=== PATIENT | male | born 1975 | race African-American/Black ===

== ENCOUNTER 2021-12-27 20:02 | Emergency (ER) | payer OTHER ==
--- NOTE | 2021-12-27 21:09 | ED Lower Extremity ---
General Chief Complaint: Lower Extremity Stated Complaint: R LEG PAIN/PREV DX WITH BLOOD CLOT Source: patient Exam Limitations: no limitations (JUANITA WHITE) History of Present Illness Date Seen by Provider: Dec 27, 2021 Time Seen by Provider: 21:03 Initial Comments Patient is a 46-year-old male who presents ED with right calf and right hamstring pain. History of DVT in the right leg. Patient states around 730 tonight while at work started having pain in the right calf and right posterior thigh while standing. History of DVT the right leg. Currently on Xarelto 20 mg daily. States he suffered a DVT secondary to post surgery. Patient took Xarelto for 3 months and developed another DVT in the right leg 2 weeks later. Has been taken Xarelto daily for the past year. Denies any chest pain, shortness of breath. Denies any trauma. Noted some swelling to the right leg. Pain only occurs with standing. Denies fever, chills, nausea, vomiting, diarrhea. (JUANITA WHITE) Allergies and Home Medications Allergies Coded Allergies: No Known Drug Allergies (Unverified , 12/27/21) Patient Home Medication List Home Medication List Reviewed: Yes (JUANITA WHITE) Rivaroxaban (Xarelto) 20 Mg Tablet, 20 MG PO DAILY Prescribed by: CARO LÓPEZ on 12/27/212128 Review of Systems Constitutional: No chills, No diaphoresis, No malaise, No weakness EENTM: No blurred vision, No double vision Respiratory: No cough, No dyspnea on exertion Cardiovascular: No chest pain Gastrointestinal: No abdominal pain, No diarrhea, No dysphagia, No nausea, No vomiting Genitourinary: No decreased output Musculoskeletal: No back pain, No joint pain; muscle pain, muscle stiffness Skin: change in color (JUANITA WHITE) All Other Systems Reviewed Negative Unless Noted: Yes (JUANITA WHITE) Past Ylehbdq-Xuqomg-Ksxkpc Hx Patient Social History Tobacco Use?: Yes Tobacco type used: Cigarettes Smoking Status: Current Everyday Smoker Substance use?: No Alcohol Use?: Yes Alcohol Frequency: Rarely Pt feels they are or have been: No (JUANITA WHITE) Immunizations Up To Date First/Initial COVID19 Vaccinat: 2020 Second COVID19 Vaccination Zoltan: 2020 COVID19 Vaccine Finance Lead: MARIA C (JUANITA WHITE) Past Medical History Surgery/Hospitalization HX: HTN, BLOOD CLOT (JUANITA WHITE) Physical Exam Vital Signs Vital Signs - First Documented 12/27/21 20:48 Temp 36.4 Pulse 73 Resp 18 B/P (MAP) 134/83 (100) (ALPESH CHASE DO) Vital Signs Capillary Refill : (JUANITA WHITE) Height, Weight, BMI Height: '" Weight: lbs. oz. kg; BMI Method: General Appearance: WD/WN, no apparent distress HEENT: PERRL/EOMI, normal ENT inspection, TMs normal, pharynx normal Neck: non-tender, full range of motion, supple, normal inspection Cardiovascular: regular rate, rhythm, no edema, no gallop, no JVD Respiratory: chest non-tender, lungs clear, normal breath sounds, no respiratory distress, no accessory muscle use Gastrointestinal: normal bowel sounds, non tender, soft, no organomegaly Hips: bilateral hip non-tender, bilateral hip normal inspection, bilateral hip normal range of motion Legs: right leg swelling Knees: bilateral knee non-tender, bilateral knee normal inspection, bilateral knee normal range of motion Ankles: bilateral ankle non-tender, bilateral ankle normal inspection, bilateral ankle normal range of motion Feet: bilateral foot non-tender, bilateral foot normal inspection, bilateral foot normal range of motion Neurologic/Tendon: normal sensation, normal motor functions, normal tendon fu nctions Skin: other (Mild swelling to the right lower extremity.) (JUANITA WHITE) Progress/Results/Core Measures Results/Orders Vital Signs/I&O 12/27/21 12/27/21 20:48 21:22 Temp 36.4 36.4 Pulse 73 71 Resp 18 18 B/P (MAP) 134/83 (100) 134/83 (ALPESH CHASE DO) Departure Communication (PCP) Patient presents ED with right leg pain. History of DVT. Currently on Xarelto 20 mg daily. Started having pain while standing at work. Does have some mild swelling to the right leg. No area of inoculation suggesting concern for infection. No erythema at this time but did have some increased swelling compared to the left. Due to not having ultrasound on the weekends ultrasound was ordered outpatient for tomorrow. Provided order for patient. Refilled the patient Xarelto for a few days. States he is almost out of his Xarelto and has been taking daily. History of DVT 1 year ago. Denies any chest pain, shortness of breath, fever, chills. Once again no trauma. Results would be called to his primary care physician or here in the ER. If worsening pain, chest pain or shortness of breath return back to ED (JUANITA WHITE) Impression Primary Impression: Pain and swelling of right lower leg Disposition: HOME, SELF-CARE Condition: Stable Departure-Patient Inst. Decision time for Depature: 21:09 (JUANITA WHITE) Referrals: [facility],LOCAL PHYSICIAN (PCP) Primary Care Physician Patient Instructions: Deep Vein Thrombosis (Blood Clots in the Legs) (DC) Add. Discharge Instructions: Recommend continue with Xarelto. Recommend following up with ultrasound on Thursday. If any worsening pain, shortness of breath, chest pain to return back to ED. All discharge instructions reviewed with patient and/or family. Voiced understanding. Scripts Rivaroxaban (Xarelto) 20 Mg Tablet 20 MG PO DAILY, #6 TAB Prov: JUANITA WHITE 12/27/21 Work/School Note: Work Release Form Date Seen in the Emergency Department: Dec 27, 2021 Return to Work: Dec 30, 2021 ATTENDING PHYSICIAN NOTE: I WAS PHYSICALLY PRESENT ER PHYSICIAN, BUT I WAS NOT INVOLVED IN ANY DECISION MAKING OR ANY CARE OF THIS PATIENT. (ALPESH CHASE DO) JUANITA WHITE Dec 27, 2021 21:09 ALPESH CHASE DO Dec 28, 2021 05:45
[2021-12-27 21:22] VITALS: BP 134/83
[2021-12-27] MEDS ORDERED: RIVA20TA PO (21:29)
== END 2021-12-27 21:21 | disposition home or self-care (01) ==
LOC: ER 20:05
DX: M79.89 Other specified soft tissue disorders (principal); M79.661 Pain in right lower leg; F17.210 Nicotine dependence, cigarettes, uncomplicated; Z86.718 Personal history of other venous thrombosis and embolism; Z79.01 Long term (current) use of anticoagulants
CPT/HCPCS: 99281

== ENCOUNTER 2022-04-21 07:55 | Emergency (ER) | payer OTHER ==
[~2022-04-21] VITALS: Ht 182 cm; Wt 108.0 kg
[~2022-04-21 07:55] MED LIST: RIVA20TA PO
[2022-04-21 08:00] VITALS: BP 116/61
--- NOTE | 2022-04-21 08:39 | ED General ---
General Chief Complaint: General Problems/Pain Stated Complaint: HEADACHE / ABD PAIN Nursing Triage Note: ARRIVED VIA AMB TO ROOM 07 WITH MULTIPLE COMPLAINTS. 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 ALSO COMPLAINS OF HAVING A HX OF A DVT IN HIS RIGHT LEG X1 YEAR BUT HAS NOT BEEN ABLE TO TAKE XERALTO DUE TO BEING IN [place]. ALSO STATES HE WAS TOLD BY THE [employer] NURSE HE MIGHT HAVE COPD AND WOULD LIKE TESTED. Source of Information: Patient Exam Limitations: No Limitations History of Present Illness Date Seen by Provider: Apr 21, 2022 Time Seen by Provider: 08:23 Initial Comments Here with report of bilateral frontal headache, congestion, mild cough and upper abdominal pain after being exposed to bleach and toilet bowl machine fur cleaner mixture last week. He was seen at outside facility in [place] after that incident was given some breathing treatments and had labs drawn which were okay. He was supposed to have an inhaler prescribed and did get that prescription but did not fill it yet. He is subsequently came to the [facility], where he intends on staying. Denies nausea or vomiting. Denies fever or chills. He is on Xarelto due to history of DVT but is out of that medicine for 2 days and is wondering about that as well. He was concerned that the chemical mixture may have caused some problems and did not know if he needed to have that checked out further. Timing/Duration: 4-5 Days Severity: Mild Associated Systoms: No Chest Pain; Cough; No Fever/Chills; Headaches; No Nausea/Vomiting; Shortness of Air; No Weakness Allergies and Home Medications Allergies Coded Allergies: No Known Drug Allergies (Unverified , 12/27/21) Patient Home Medication List Home Medication List Reviewed: Yes Rivaroxaban (Xarelto) 20 Mg Tablet, 20 MG PO DAILY Prescribed by: CARO LÓPEZ on 12/27/212128 Review of Systems Review of Systems Constitutional: see HPI; No chills, No fever EENTM: nose congestion, other (Sinus tenderness); No throat pain, No throat swelling Respiratory: cough, short of breath Cardiovascular: no symptoms reported Gastrointestinal: see HPI; No diarrhea, No vomiting Musculoskeletal: No back pain, No muscle pain Psychiatric/Neurological: Headache; Denies Weakness Past Hadzesc-Htxtvy-Rgbazj Hx Patient Social History Tobacco Use?: Yes Smoking Status: Current Everyday Smoker Substance use?: Yes Substance type: Marijuana Alcohol Use?: Yes Alcohol Frequency: Once in a while Immunizations Up To Date First/Initial COVID19 Vaccinat: 2020 Second COVID19 Vaccination Zoltan: UNKNOWN COVID19 Vaccine Swimming Pool Serviceperson: MODERNAlla Past Medical History Surgery/Hospitalization HX: HTN, BLOOD CLOT Surgeries: Yes Abdominal, Appendectomy Respiratory: No Cardiac: Yes Deep Vein Thrombosis Neurological: No Family Medical History Reviewed and Corrections made No Pertinent Family Hx Physical Exam Vital Signs Vital Signs - First Documented 04/21/22 08:00 Temp 36.6 Pulse 78 Resp 16 B/P (MAP) 116/61 (79) Pulse Ox 97 O2 Delivery Room Air Capillary Refill : Less Than 3 Seconds Height, Weight, BMI Height: '" Weight: lbs. oz. kg; 32.00 BMI Method: General Appearance: No Apparent Distress, WD/WN HEENT: TMs Normal, Other (Mild pharyngeal erythema. Mild bilateral frontal sinus tenderness) Neck: Full Range of Motion, Normal Inspection, Non Tender, Supple Respiratory: Normal Breath Sounds, No Accessory Muscle Use Cardiovascular: Regular Rate, Rhythm, No Murmur Gastrointestinal: Non Tender, Soft Neurologic/Psychiatric: Alert, Oriented x3 Skin: Normal Color, Warm/Dry Progress/Results/Core Measures Suspected Sepsis SIRS Temperature: Pulse: 78 Respiratory Rate: 16 Blood Pressure 116 /61 Mean: 79 Results/Orders My Orders Orders - TRISHA RODRIGUEZ MD Rivaroxaban Tablet (Xarelto Tablet) (04/21/22 09:00) Ketorolac Injection (Toradol Injection) (04/21/22 08:58) Vital Signs/I&O 04/21/22 08:00 Temp 36.6 Pulse 78 Resp 16 B/P (MAP) 116/61 (79) Pulse Ox 97 O2 Delivery Room Air Capillary Refill : Less Than 3 Seconds Blood Pressure Mean: 79 Progress Note : Progress Note Seen and evaluated. Toradol 60 mg IM and Xarelto 20 mg p.o. We will write prescription for Xarelto, amoxicillin, albuterol MDI and a short course of steroids for sinusitis and postexposure bronchitis. He also has history of DVT that he we will continue to manage as outpatient. He apparently failed being off of anticoagulants previously so will be on this lifelong per the patient. He will follow-up with outpatient clinic here and establish care. Discharged home with return precautions. Patient verbalized understanding of instructions and agreement with plan. Departure Impression Primary Impression: Acute sinusitis Qualified Codes: J01.10 - Acute frontal sinusitis, unspecified Additional Impression: Bronchitis Disposition: HOME, SELF-CARE Condition: Stable Departure-Patient Inst. Decision time for Depature: 09:06 Referrals: AMBER WARREN MD NO,LOCAL PHYSICIAN (PCP) Primary Care Physician Patient Instructions: Sinusitis, Adult ED, Acute Bronchitis, Adult (DC) Add. Discharge Instructions: All discharge instructions reviewed with patient and/or family. Voiced understanding. You may take Tylenol/acetaminophen 1000 mg every 8 hours as needed for fever or pain. You may use Afrin nasal spray or the generic, 12 hour relief, 2 sprays to each nostril twice daily for 3 days only and then stop. Do not use more than 3 days. Take other medications as directed. Drink plenty of fluids. Return for worse pain, fever, vomiting, weakness, breathing problems or other concerns as needed. Follow-up with outpatient clinic listed or of your choosing. Call for an establish care appointment for first available. Scripts Prednisone (Prednisone) 20 Mg Tab 40 MG PO DAILY, #8 TAB 0 Refills Prov: TRISHA RODRIGUEZ MD 04/21/22 Amoxicillin (Amoxicillin) 500 Mg Capsule 500 MG PO TID, #30 CAP 0 Refills Prov: TRISHA RODRIGUEZ MD 04/21/22 Albuterol Sulfate (VENTOLIN HFA) 1 Puff Puff 2 PUFF INH Q4H PRN for COUGH, #1 EA 1 Refill 1 PUFF = 90 MCG Prov: TRISHA RODRIGUEZ MD 04/21/22 Rivaroxaban (Xarelto) 20 Mg Tablet 20 MG PO DAILY for 30 Days, #30 TAB 1 Refill Prov: TRISHA RODRIGUEZ MD 04/21/22 TRISHA RODRIGUEZ MD Apr 21, 2022 08:39
[2022-04-21] MEDS ORDERED: KETOROLAC 60 MG/2 ML VIAL IM STA (08:58)
[2022-04-21] MEDS ORDERED: RIVAROXABAN 20 MG TABLET (XARELTO) PO ONE (09:00)
[2022-04-21] MEDS ORDERED: PRD20T PO (09:09)
[2022-04-21] MEDS ORDERED: AMOX500C2 PO (09:09)
[2022-04-21] MEDS ORDERED: RT-ALBUINH INH (09:09)
[2022-04-21] MEDS ORDERED: RIVA20TA PO (09:09)
== END 2022-04-21 09:19 | disposition home or self-care (01) ==
LOC: EDUNIT# 07:55 → ER 07:57
DX: J01.90 Acute sinusitis, unspecified (principal); J40 Bronchitis, not specified as acute or chronic; F17.200 Nicotine dependence, unspecified, uncomplicated
CPT/HCPCS: 99285

== ENCOUNTER → 2022-10-06 | Outpatient (CLI) | payer OTHER ==
[~2022-10-06] MED LIST changes: +AMOX500C2 PO; +PRD20T PO; +RT-ALBUINH INH
--- NOTE | 2022-10-06 16:26 | Diagnostic Imaging Report ---
EXAMINATION: Left wrist radiographs, 2 views. COMPARISON: None. HISTORY: 46-year-old male, left wrist pain. FINDINGS: There is no identified acute fracture. Bone mineralization and alignment are unremarkable. The joint spaces are well preserved. IMPRESSION: Unremarkable radiographs of the left wrist. Dictated by: Dictated on workstation # [id number]
--- NOTE | 2022-10-06 16:26 | Diagnostic Imaging Report ---
EXAMINATION: Left shoulder radiographs, 2 views. COMPARISON: None. HISTORY: 46-year-old male, left shoulder pain. FINDINGS: The humeral head is normally positioned relative to the glenoid. The acromioclavicular joint is normally aligned. There are no acromioclavicular degenerative changes. There is no identified acute fracture. The glenohumeral joint space appears to be well-maintained. IMPRESSION: Unremarkable radiographs of the left shoulder. Dictated by: Dictated on workstation # [id number]
== END ==
LOC: RAD 15:57
PROVIDERS: ATTEND Family Medicine
DX: M25.512 Pain in left shoulder (principal); M25.532 Pain in left wrist
CPT/HCPCS: 73030; 73100

== ENCOUNTER 2022-10-29 11:54 | Emergency (ER) | payer SELFPAY ==
[~2022-10-29] VITALS: Ht 182 cm; Wt 122.0 kg
--- NOTE | 2022-10-29 12:13 | ED Lower Extremity ---
General Chief Complaint: Lower Extremity Stated Complaint: RT LEG BLOOD CLOT Nursing Triage Note: RIGHT LOWER LEG SWELLING X2 WEEKS THAT STARTED HURTING UP INTO HIS THIGH. HX OF BLOOD CLOTS. STOPPED XERELTO X3-4 MONTHS AGO BECAUSE HE COULD NOT AFFORD IT AND HAS BEEN TAKING ASA. PT COMPLAINS OF SOA. Source: patient Exam Limitations: no limitations History of Present Illness Date Seen by Provider: Oct 29, 2022 Time Seen by Provider: 11:57 Initial Comments 46 yo M here stating he thinks he has a blood clot in his right leg. He has a history of chronic blood clot for the last 1 year. He has been on Xarelto but 3 months ago stopped taking it because he could not afford it. He substituted it with an aspirin [id number]. About a week ago he had increased pain and swelling in his right leg. States he saw the walk-in clinic yesterday who gave him a Xarelto starter pack so he restarted this medication. Several way to secure the medicine going forward. He does not specifically complain of chest pain or shortness of breath out right but when asked he states he has been getting significantly winded with exertion for about 3 days. He denies any chest pain. Lastly, he states he in certain social situations has trembling in his arms, legs and his face. He thinks it may be related to anxiety. He has no other symptoms during these times. All other systems reviewed and negative except documented per HPI. Voice recognition software was used to help create this chart Allergies and Home Medications Allergies Coded Allergies: No Known Drug Allergies (Unverified , 12/27/21) Patient Home Medication List Home Medication List Reviewed: Yes Albuterol Sulfate (Ventolin Hfa) 1 Puff Puff, 2 PUFF INH Q4H PRN for COUGH Prescribed by: TRISHA RODRIGUEZ on 04/21/22908 Amoxicillin (Amoxicillin) 500 Mg Capsule, 500 MG PO TID Prescribed by: TRISHA RODRIGUEZ on 04/21/22908 Prednisone (Prednisone) 20 Mg Tab, 40 MG PO DAILY Prescribed by: TRISHA RODRIGUEZ on 04/21/22908 Rivaroxaban (Xarelto) 20 Mg Tablet, 20 MG PO DAILY Prescribed by: CARO LÓPEZ on 12/27/212128 Rivaroxaban (Xarelto) 20 Mg Tablet, 20 MG PO DAILY Prescribed by: TRISHA RODRIGUEZ on 04/21/22 0909 Review of Systems Constitutional: see HPI Past Mwynzjj-Mkdajf-Ezomwe Hx Patient Social History Tobacco Use?: Yes Smoking Status: Current Everyday Smoker Substance use?: No Alcohol Use?: Yes Alcohol Frequency: Couple times a week Immunizations Up To Date First/Initial COVID19 Vaccinat: 2020 Second COVID19 Vaccination Zoltan: UNKNOWN Past Medical History Surgery/Hospitalization HX: HTN, BLOOD CLOT Surgeries: Yes Abdominal, Appendectomy Respiratory: No Cardiac: Yes Deep Vein Thrombosis Neurological: No Family Medical History Reviewed Nursing Family Hx No Pertinent Family Hx Physical Exam Vital Signs Vital Signs - First Documented 10/29/22 11:58 Temp 36.3 Pulse 95 Resp 16 B/P (MAP) 123/74 (90) Pulse Ox 97 O2 Delivery Room Air Capillary Refill : Less Than 3 Seconds Height, Weight, BMI Height: '" Weight: lbs. oz. kg; 36.00 BMI Method: General Appearance: WD/WN HEENT: normal ENT inspection, pharynx normal Neck: full range of motion, supple Cardiovascular: regular rate, rhythm, no murmur Respiratory: chest non-tender, lungs clear, normal breath sounds, no respiratory distress, no accessory muscle use Gastrointestinal: normal bowel sounds, non tender, soft Legs: right leg other (Mild tenderness palpation right calf. There is mild swelling here as well. Neurovascular motor and sensory intact.) Neurologic/Psychiatric: alert, oriented x 3 Skin: normal color, warm/dry Progress/Results/Core Measures Results/Orders Lab Results Laboratory Tests Test 10/29/22 12:15 Range/Units Sodium Level 142 135-145 MMOL/L Potassium Level 3.9 3.6-5.0 MMOL/L Chloride Level 110 H 98-107 MMOL/L Carbon Dioxide Level 21 21-32 MMOL/L Anion Gap 11 5-14 MMOL/L Blood Urea Nitrogen 13 7-18 MG/DL Creatinine 1.24 0.60-1.30 MG/DL Estimat Glomerular Filtration Rate 72 BUN/Creatinine Ratio 10 Glucose Level 96 70-105 MG/DL Calcium Level 9.0 8.5-10.1 MG/DL My Orders Orders - MARCELLE PITT DO Basic Metabolic Panel (10/29/22 12:08) Ct Angio Chest W (10/29/22 12:08) Iv/Invasive Line Insertion .IV INSERT (10/29/22 12:13) Iohexol Injection (Omnipaque 350 Mg/Ml 1 (10/29/22 12:45) Received Contrast (Hold Metformin- Contr (10/29/22 12:45) Ns (Ivpb) (Sodium Chloride 0.9% Ivpb Bag (10/29/22 12:45) Medications Given in ED Current Medications Medications Dose Ordered Sig/Mariah Route Start Time Stop Time Status Last Admin Dose Admin Iohexol 100 ml ONCE ONCE IV 10/29/22 12:45 10/29/22 12:46 DC 10/29/22 12:48 86 ML Sodium Chloride 100 ml ONCE ONCE IV 10/29/22 12:45 10/29/22 12:46 DC 10/29/22 12:48 80 ML Vital Signs/I&O 10/29/22 11:58 Temp 36.3 Pulse 95 Resp 16 B/P (MAP) 123/74 (90) Pulse Ox 97 O2 Delivery Room Air Blood Pressure Mean: 90 Departure Communication (Admissions) Patient is hemodynamically stable. Patient has dyspnea on exertion. With his history of DVT and noncompliance with Xarelto and had ordered a CTA which is negative. No indication for further ultrasound of his right lower extremity as he is already on Xarelto once again. He will be discharged home in stable condition with supportive care. Impression Primary Impression: Right leg DVT Qualified Codes: I82.401 - Acute embolism and thrombosis of unspecified deep veins of right lower extremity Additional Impression: Dyspnea on exertion Disposition: 01 HOME, SELF-CARE Condition: Stable Departure-Patient Inst. Ref[facility]: [facility] [place]) Primary Care Physician Add. Discharge Instructions: CT scan shows no evidence for blood clot in your lungs. Continue Xarelto. Use ibuprofen and Tylenol for pain. Return to the emergency department for any severe concerns. All discharge instructions reviewed with patient and/or family. Voiced understanding. MARCELLE PITT DO Oct 29, 2022 12:13
[2022-10-29 12:41] LABS: POTASSIUM 3.9 MMOL/L (3.6-5.0)
[2022-10-29] MEDS ORDERED: IOHEXOL 350 MG/ML 100 ML (OMNIPAQUE 350) VIAL IV ONE (12:45)
[2022-10-29] MEDS ORDERED: HOLD METFORMIN - RECEIVED CONTRAST 20 ML VIAL IV SCH (12:45)
[2022-10-29] MEDS ORDERED: NS 100 ML (IVPB) BAG IV ONE (12:45)
[2022-10-29 12:47] LABS: CREATININE SERUM 1.24 MG/DL (0.60-1.30)
--- NOTE | 2022-10-29 12:57 | Diagnostic Imaging Report ---
PROCEDURE: CT angiography of the chest with contrast. TECHNIQUE: Multiple contiguous axial images were obtained through the chest after uneventful bolus administration of intravenous contrast. 3D reconstructed CTA MIP acquisitions were also performed. Auto Exposure Controls were utilized during the CT exam to meet ALARA standards for radiation dose reduction. INDICATION: Right leg swelling and onset of dyspnea. FINDINGS: Pulmonary artery is of normal caliber without evidence of intraluminal filling defect. Thoracic aorta is also of normal caliber without dissection or aneurysm. There are numerous subcentimeter nodules, mostly calcified residing in both lungs and within the mediastinum, indicating previous granulomatous exposure. Otherwise, there is no evidence of focal infiltrate or suspicious mass. There is fusion of the right ribs, medially. Upper abdominal sections reveal no additional abnormality. IMPRESSION: No CTA evidence of pulmonary embolism or other acute abnormality in the thorax. There is significant granulomatous residua without suspicious mass lesion identified. Dictated by: Dictated on workstation # [id number]
[2022-10-29 13:23] VITALS: BP 128/76
== END 2022-10-29 13:23 | disposition home or self-care (01) ==
LOC: EDUNIT# 11:54 → ER 11:56
DX: I82.401 Acute embolism and thrombosis of unspecified deep veins of right lower extremity (principal); R06.00 Dyspnea, unspecified; F17.200 Nicotine dependence, unspecified, uncomplicated; Z79.82 Long term (current) use of aspirin; Z79.01 Long term (current) use of anticoagulants
CPT/HCPCS: 36415; 71275; 80048

== ENCOUNTER 2022-11-18 11:47 | Emergency (ER) | payer SELFPAY ==
[~2022-11-18] VITALS: Ht 182.8 cm; Wt 122.5 kg
--- NOTE | 2022-11-18 12:44 | ED Upper Extremity ---
General Chief Complaint: Upper Extremity Stated Complaint: LT SHOULDER PAIN Nursing Triage Note: PT AMB TO ED BY POV WITH C/O L SHOULDER PAIN. PT REPORTS INTERMITTENT L SHOULDER PAIN FOR SEVERAL YEARS, WORSE OVER THE LAST 3 DAYS, NO NEW INJURY. Source: patient Exam Limitations: no limitations (HEATHER CORRAL APRN) History of Present Illness Date Seen by Provider: Nov 18, 2022 Time Seen by Provider: 12:27 Initial Comments 46-year-old male presents to the ED with complaints of left shoulder pain. He states that he injured his shoulder many years ago. States that the pain became worse again about 2 years ago, stated it improved, but reports intermittent pain since then. States over the last 3 days his pain has gotten a lot worse and has been constant. He denies known injury, but has been seeing physical therapy and reports he was riding a bike and moving his arms a lot last week. Thinks he could have overworked his shoulder. He states that he had an x-ray done here, but never got the results of it. He reports that this morning around 7 AM the p ain shot up into his neck and the left side of his face and down to the arm. Reports numbness and tingling in the arm at that time. Currently he reports the pain is only in the shoulder and left trapezius. Denies any chest pain or shortness of air. Past medical history includes a DVT in December 2020, he currently takes Xarelto. (HEATHER CORRAL APRN) Allergies and Home Medications Allergies Coded Allergies: No Known Drug Allergies (Unverified , 12/27/21) Patient Home Medication List Home Medication List Reviewed: Yes (HEATHER CORRAL APRN) Albuterol Sulfate (Ventolin Hfa) 1 Puff Puff, 2 PUFF INH Q4H PRN for COUGH Prescribed by: TRISHA RODRIGUEZ on 04/21/22 09 Amoxicillin (Amoxicillin) 500 Mg Capsule, 500 MG PO TID Prescribed by: TRISHA RODRIGUEZ on 04/21/22 09 Cyclobenzaprine HCl (Cyclobenzaprine HCl) 10 Mg Tablet, 10 MG PO TID Prescribed by: Heather Corral on 11/18/22 1357 Prednisone (Prednisone) 20 Mg Tab, 40 MG PO DAILY Prescribed by: TRISHA RODRIGUEZ on 04/21/22908 Rivaroxaban (Xarelto) 20 Mg Tablet, 20 MG PO DAILY Prescribed by: CARO LÓPEZ on 12/27/212128 Rivaroxaban (Xarelto) 20 Mg Tablet, 20 MG PO DAILY Prescribed by: TRISHA RODRIGUEZ on 04/21/22908 Review of Systems Constitutional: see HPI (HEATHER CORRAL APRN) Past Iytfmxt-Abrhxu-Hjvuyu Hx Patient Social History Tobacco Use?: Yes Tobacco type used: Cigarettes Smoking Status: Current Everyday Smoker Use of E-Cig and/or Vaping dev: No Substance use?: Yes Substance type: Marijuana Substance frequency: Couple times a week Alcohol Use?: Yes Alcohol Frequency: Several times a month Pt feels they are or have been: No (HEATHER CORRAL APRN) Immunizations Up To Date Influenza Vaccine Up-to-Date: No; Not Current First/Initial COVID19 Vaccinat: X2 Second COVID19 Vaccination Zoltan: X2 (HEATHER CORRAL APRN) Past Medical History Surgery/Hospitalization HX: HTN, DVT Surgeries: Yes Abdominal, Appendectomy Respiratory: No Cardiac: Yes Deep Vein Thrombosis Neurological: No (HEATHER CORRAL APRN) Family Medical History No Pertinent Family Hx (HEATHER CORRAL APRN) Physical Exam Vital Signs Vital Signs - First Documented 11/18/22 11:57 Temp 37.0 Pulse 88 Resp 16 B/P (MAP) 139/88 (105) Pulse Ox 95 O2 Delivery Room Air (BRITTANY STANTON MD) Vital Signs Capillary Refill : Less Than 3 Seconds (HEATHER CORRAL APRN) Height, Weight, BMI Height: '" Weight: lbs. oz. kg; 36.00 BMI Method: General Appearance: WD/WN, no apparent distress Neck: supple, normal inspection Cardiovascular: regular rate, rhythm, no edema, no gallop, no JVD, no murmur Respiratory: lungs clear, normal breath sounds, no respiratory distress, no accessory muscle use Back: no vertebral tenderness (C-spine) Shoulder: limited ROM, pain, soft tissue tenderness (Very tender to minimal palpation) Elbow/Forearm: normal inspection, non-tender, no evidence of injury, normal ROM Neurologic/Psychiatric: alert, normal mood/affect Skin: normal color, warm/dry (HEATHER CORRAL APRN) Progress/Results/Core Measures Results/Orders Lab Results Laboratory Tests Test 11/18/22 12:40 Range/Units White Blood Count 4.4 4.3-11.0 10^3/uL Red Blood Count 4.92 4.30-5.52 10^6/uL Hemoglobin 15.6 13.3-17.7 g/dL Hematocrit 43 40-54 % Mean Corpuscular Volume 88 80-99 fL Mean Corpuscular Hemoglobin 32 25-34 pg Mean Corpuscular Hemoglobin Concent 36 32-36 g/dL Red Cell Distribution Width 12.6 10.0-14.5 % Platelet Count 195 130-400 10^3/uL Mean Platelet Volume 9.7 9.0-12.2 fL Immature Granulocyte % (Auto) 0 % Neutrophils (%) (Auto) 46 42-75 % Lymphocytes (%) (Auto) 40 12-44 % Monocytes (%) (Auto) 11 0-12 % Eosinophils (%) (Auto) 3 0-10 % Basophils (%) (Auto) 1 0-10 % Neutrophils # (Auto) 2.0 1.8-7.8 10^3/uL Lymphocytes # (Auto) 1.8 1.0-4.0 10^3/uL Monocytes # (Auto) 0.5 0.0-1.0 10^3/uL Eosinophils # (Auto) 0.1 0.0-0.3 10^3/uL Basophils # (Auto) 0.0 0.0-0.1 10^3/uL Immature Granulocyte # (Auto) 0.0 0.0-0.1 10^3/uL Prothrombin Time 19.3 H 12.2-14.7 SEC INR Comment 1.6 H 0.8-1.4 Activated Partial Thromboplast Time 40 H 24-35 SEC Sodium Level 140 135-145 MMOL/L Potassium Level 4.0 3.6-5.0 MMOL/L Chloride Level 110 H 98-107 MMOL/L Carbon Dioxide Level 20 L 21-32 MMOL/L Anion Gap 10 5-14 MMOL/L Blood Urea Nitrogen 13 7-18 MG/DL Creatinine 1.16 0.60-1.30 MG/DL Estimat Glomerular Filtration Rate 78 BUN/Creatinine Ratio 11 Glucose Level 103 70-105 MG/DL Calcium Level 9.3 8.5-10.1 MG/DL Corrected Calcium 9.1 8.5-10.1 MG/DL Magnesium Level 2.0 1.6-2.4 MG/DL Total Bilirubin 0.5 0.1-1.0 MG/DL Aspartate Amino Transf (AST/SGOT) 20 5-34 U/L Alanine Aminotransferase (ALT/SGPT) 21 0-55 U/L Alkaline Phosphatase 45 40-136 U/L Troponin I < 0.028 <0.028 NG/ML Total Protein 7.0 6.4-8.2 GM/DL Albumin 4.2 3.2-4.5 GM/DL (BRITTANY STANTON MD) Blood Pressure Mean: 105 Progress Progress Note : Time: 12:43 Progress Note Patient seen and evaluated, resting comfortably in recliner, no acute distress. Based on exam and symptoms, this is likely a muscular injury of the left shoulder, but I am going to do a cardiac work-up due to radiation of pain into left neck face and tingling in arm which occurred this morning. Work-up initiated including CBC, CMP, troponin, magnesium, coags, chest x-ray, EKG. Tor adol and Norflex ordered. 1350 Labs and x-ray reviewed. CBC grossly normal. CMP shows slightly elevated chloride 110, slightly decreased CO2 20. Troponin negative. Magnesium normal 2.0. Coags show elevated PT 19.3, elevated INR 1.6, elevated APTT 40. X-ray shows no acute cardiopulmonary process. Results discussed with patient. Pain is likely musculoskeletal in nature. Will discharge with prescription for Flexeril. Discharge instructions and return precautions provided. (HEATHER CORRAL APRN) Initial ECG Impression Date: Nov 18, 2022 Initial ECG Impression Time: 13:15 Initial ECG Rate: 73 Initial ECG Rhythm: Normal Sinus Initial ECG Intervals: Normal Initial ECG Impression: Normal Initial ECG Comparisson: No Previous ECG Available (HEATHER CORRAL APRN) Diagnostic Imaging Diagonstic Imaging: Xray Plain Films/CT/US/NM/MRI: chest Comments [facility] [place], [place] NAME: NIRALI ALVARENGA [facility] REC#: [id number] PT STATUS: REG ER : 1975 PHYSICIAN: HEATHER CORRAL APRN ADMIT DATE: 11/18/22/ER Draft Date of Exam:11/18/22 CHEST 1 VIEW, AP/PA ONLY INDICATION: Left shoulder pain Frontal chest obtained at 12:55 p.m. Heart and mediastinal silhouette are normal in appearance. There are calcified granuloma in the right base. Lungs are clear. There is no pneumothorax or pleural fluid. IMPRESSION: No acute process in the chest. Dictated on workstation # [id number] Dict: 11/18/22 1258 Trans: 11/18/22 1300 CVB [id number] Interpreted by: RITESH RITCHIE MD Electronically signed by: (HEATHER CORRAL APRN) Departure Impression Primary Impression: Shoulder pain Disposition: HOME, SELF-CARE Condition: Stable Departure-Patient Inst. Decision time for Depature: 13:56 (HEATHER CORRAL APRN) Referrals: [facility] [place] (PCP/Family) Primary Care Physician Patient Instructions: Shoulder Pain ED Add. Discharge Instructions: Take 800 mg of ibuprofen every 8 hours with food over the next couple of days to help with pain and inflammation. Take Flexeril up to 3 times a day as needed for pain, it may make you sleepy. Let your physical therapist know about your shoulder pain, they may perform different exercises to help with your shoulder pain. Follow-up with orthopedics or primary care provider. Return for severe pain, inability to use your arm, chest pain, shortness of air, or any other new, concerning, or worsening symptoms. All discharge instructions reviewed with patient and/or family. Voiced understanding. Scripts Cyclobenzaprine HCl (Cyclobenzaprine HCl) 10 Mg Tablet 10 MG PO TID, #21 TAB 0 Refills Prov: HEATHER CORRAL APRN 11/18/22 ATTENDING PHYSICIAN NOTE: I was physically present as attending physician in the emergency department during the care of this patient, but I was not directly involved in the decision making or delivery of care for this patient. (BRITTANY STANTON MD) HEATHER CORRAL APRN Nov 18, 2022 12:44 BRITTANY STANTON MD Nov 19, 2022 13:00
[2022-11-18] MEDS ORDERED: ORPHENADRINE 60 MG/2 ML (NORFLEX) AMP (ED ONLY) IV ONE (12:45)
[2022-11-18] MEDS ORDERED: KETOROLAC 30 MG/ML VIAL IVP ONE (12:45)
[2022-11-18 12:49] LABS: BASOPHILS % (AUTO) 1 % (0-10); EOSINOPHILS # (AUTO) 0.1 10^3/uL (0.0-0.3); EOSINOPHILS % (AUTO) 3 % (0-10); HEMATOCRIT 43 % (40-54); HEMOGLOBIN 15.6 g/dL (13.3-17.7); LYMPHOCYTES # (AUTO) 1.8 10^3/uL (1.0-4.0); LYMPHOCYTES % (AUTO) 40 % (12-44); MEAN CORPUSCULAR HEMOGLOBIN 32 pg (25-34); MEAN CORPUSCULAR HGB CONC 36 g/dL (32-36); MEAN CORPUSCULAR VOLUME 88 fL (80-99); MEAN PLATELET VOLUME 9.7 fL (9.0-12.2); MONOCYTES # (AUTO) 0.5 10^3/uL (0.0-1.0); MONOCYTES % (AUTO) 11 % (0-12); NEUTROPHILS % (AUTO) 46 % (42-75); PLATELET COUNT 195 10^3/uL (130-400); WHITE BLOOD COUNT 4.4 10^3/uL (4.3-11.0)
[2022-11-18 12:59] LABS: ALBUMIN 4.2 GM/DL (3.2-4.5)
[2022-11-18 13:00] LABS: CALCIUM 9.3 MG/DL (8.5-10.1)
--- NOTE | 2022-11-18 13:00 | Diagnostic Imaging Report ---
INDICATION: Left shoulder pain Frontal chest obtained at 12:55 p.m. Heart and mediastinal silhouette are normal in appearance. There are calcified granuloma in the right base. Lungs are clear. There is no pneumothorax or pleural fluid. IMPRESSION: No acute process in the chest. Dictated by: Dictated on workstation # [id number]
[2022-11-18 13:03] LABS: BILIRUBIN,TOTAL 0.5 MG/DL (0.1-1.0)
[2022-11-18 13:05] LABS: CREATININE SERUM 1.16 MG/DL (0.60-1.30)
[2022-11-18 13:13] LABS: INR 1.6 (0.8-1.4); PROTHROMBIN TIME PATIENT 19.3 SEC (12.2-14.7)
[2022-11-18] MEDS ORDERED: CYCL10TA25 PO (13:57)
[2022-11-18 14:10] VITALS: BP 101/67
== END 2022-11-18 14:14 | disposition home or self-care (01) ==
LOC: EDUNIT# 11:47 → ER 11:49
DX: M25.512 Pain in left shoulder (principal); F17.210 Nicotine dependence, cigarettes, uncomplicated; Z86.718 Personal history of other venous thrombosis and embolism; Z79.01 Long term (current) use of anticoagulants
CPT/HCPCS: 36415; 71045; 80053; 83735; 84484; 85025; 85610; 85730; 93005

== ENCOUNTER → 2022-12-11 | Outpatient (CLI) | payer OTHER ==
[~2022-12-11] MED LIST changes: +CYCL10TA25 PO
--- NOTE | 2022-12-11 11:02 | Diagnostic Imaging Report ---
EXAMINATION: Right wrist radiographs, 2 views. COMPARISON: None. HISTORY: 47-year-old male, chronic right wrist pain. FINDINGS: There is no identified acute fracture. Bone mineralization and alignment are unremarkable. The joint spaces appear well-preserved. IMPRESSION: 1. Unremarkable radiographs of the right wrist. Dictated by: Dictated on workstation # [id number]
== END ==
LOC: RAD 08:56
PROVIDERS: ATTEND Family Medicine
DX: M25.531 Pain in right wrist (principal); G89.29 Other chronic pain
CPT/HCPCS: 73100